=== PATIENT | male | born 2000 | race Two or more races ===

== ENCOUNTER → 2019-08-06 | Outpatient (CLI) | payer OTHER | END | disposition home or self-care (01) | LOC: MRI 15:14 → RAD 15:14 | DX: M25.511 Pain in right shoulder (principal) | CPT/HCPCS: 73221 ==

== ENCOUNTER 2021-07-07 12:36 | Emergency (ER) | payer OTHER ==
[~2021-07-07] VITALS: Ht 172.7 cm; Wt 68.9 kg
[2021-07-07] MEDS ORDERED: KETO10TA2 PO (14:46)
== END 2021-07-07 14:55 | disposition home or self-care (01) ==
LOC: ER 12:36
DX: S00.83XA Contusion of other part of head, initial encounter (principal); X58.XXXA Exposure to other specified factors, initial encounter; Y93.66 Activity, soccer; Y92.322 Soccer field as the place of occurrence of the external cause; Y99.8 Other external cause status